=== PATIENT | female | born 1990 ===

== ENCOUNTER 2023-06-28 14:37 | Outpatient (CLI) | payer OTHER | END 2023-06-28 17:54 | disposition home or self-care (01) | LOC: PRENATAL 14:37 | PROVIDERS: ATTEND Obstetrics & Gynecology Maternal & Fetal Medicine | DX: O35.3XX0 Maternal care for (suspected) damage to fetus from viral disease in mother, not applicable or unspecified (principal); O32.9XX0 Maternal care for malpresentation of fetus, unspecified, not applicable or unspecified; Z3A.34 34 weeks gestation of pregnancy ==